=== PATIENT | female | born 1995 | race Two or more races ===

== ENCOUNTER 2016-09-28 14:57 | Emergency (ER) | payer OTHER ==
[2016-09-28 15:05] VITALS: BP 117/76; PULSE 92; TEMP 98; BMI 32.9
--- NOTE | 2016-09-28 15:18 | PDOC ---
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 Pt states she is 10 weeks Pt has no vaginal bleeding or discharge. no urinary complaints. Pt is . 09/28/16 15:55 Past History - Past Medical History Allergies/Adverse Reactions: Allergies Allergy/AdvReac Type Severity Reaction Status Date / Time No Known Allergies Allergy Verified 09/28/16 15:01 Home Medications: Ambulatory Orders Pyridoxine HCl 25 mg PO QID PRN #28 tablet MDD 200mg 09/28/16 Other medical history: Denies - Immunization History Immunization Up to Date: Yes - Psycho/Social/Smoking Cessation Hx Suicidal Ideation: No Smoking History: Never smoked Information on smoking cessation initiated: No Hx Alcohol Use: No Drug/Substance Use Hx: No Substance Use Type: None *Physical Exam - Vital Signs Last Vital Signs Temp Pulse Resp BP Pulse Ox 98.0 F 92 H 17 117/76 100 09/28/16 15:01 09/28/16 15:01 09/28/16 15:01 09/28/16 15:01 09/28/16 15:01 - Physical Exam General Appearance: Yes: Nourished, Appropriately Dressed HEENT: positive: EOMI, LEW, Normal ENT Inspection, TMs Normal, Pharynx Normal Neck: positive: Supple. negative: Tender Respiratory/Chest: positive: Lungs Clear, Normal Breath Sounds Cardiovascular: positive: Regular Rhythm, Regular Rate Gastrointestinal/Abdominal: positive: Normal Bowel Sounds, Soft. 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 tolerated crackers and apple juice without vomiting. will dc home stable for dc. *DC/Admit/Observation/Transfer Diagnosis at time of Disposition: Hyperemesis affecting , antepartum - Discharge Dispostion Disposition: HOME Condition at time of disposition: Good - Prescriptions Prescriptions: Pyridoxine HCl 25 mg PO QID PRN #28 tablet MDD 200mg PRN Reason: Nausea And/Or Vomiting - Patient Instructions Printed Discharge Instructions: DI for Hyperemesis Gravidarum Additional Instructions: norm twyla, gatorade, ice pops dry saltine crackers , dry cereal, bland diet take the prescribed vitamin B6 for nausea as directed follow with your Ob call tomorrow to make follow up appointment Gingerade Galletas saladas secas, cereal seco, dieta suave Ishan la vitamina B6 prescrita para las nuseas segn lo indicado Siga con ruiz Ob. llame maana para hacer la genna de seguimiento
[2016-09-28 15:55] LABS: URINE APPEARANCE CLOUDY; URINE BILIRUBIN NEGATIVE (NEGATIVE); URINE BLOOD NEGATIVE (NEGATIVE); URINE COLOR AMBER; URINE GLUCOSE (UA) NEGATIVE (NEGATIVE); URINE KETONE 1+ (NEGATIVE); URINE LEUK ESTERASE NEGATIVE (NEGATIVE); URINE NITRITE NEGATIVE (NEGATIVE)
[2016-09-28] MEDS ORDERED: ONDANSETRON 4 MG/2 ML VIAL IVPB ONE (15:59)
[2016-09-28] MEDS ORDERED: SODIUM CHLORIDE 0.9% 1000 ML INFUS.BAG IV ONE (15:59)
[2016-09-28] MEDS ORDERED: ONDANSETRON 4 MG/2 ML VIAL ONE (16:20)
[2016-09-28 16:32] LABS: URINE PROTEIN 1+ (NEGATIVE)
[2016-09-28 17:16] LABS: URINE MUCUS MANY; URINE RBC 8 /hpf (0-3); URINE WBC 2 /hpf (3-5)
[2016-09-28 17:53] LABS: ALBUMIN 3.8 g/dl (3.4-5.0); ALK PHOS 68 U/L (45-117); ANION GAP 9 (8-16); BILIRUBIN,TOTAL 0.3 mg/dL (0.2-1.0); CO2 26 mmol/L (21-32); CREATININE 0.6 mg/dL (0.55-1.02); GLUCOSE,RANDOM 75 mg/dL (74-106); SGPT/ALT 26 U/L (12-78); TOT PROT 7.7 g/dl (6.4-8.2)
[2016-09-28 17:54] LABS: SGOT/AST 15 U/L (15-37)
== END 2016-09-28 19:03 | disposition home or self-care (01) ==
LOC: JERFT 14:57
PROC: 3E033GC Introduction of Other Therapeutic Substance into Peripheral Vein, Percutaneous Approach (ICD-10-PCS; principal; 2016-09-28)
PROC: 3E033GC Introduction of Other Therapeutic Substance into Peripheral Vein, Percutaneous Approach (ICD-10-PCS; 2016-09-28)
DX: O26.891 Other specified pregnancy related conditions, first trimester (principal); O21.0 Mild hyperemesis gravidarum; Z3A.10 10 weeks gestation of pregnancy
CPT/HCPCS: 36415; 80053; 81003; 81015; 83735; 84703; 87086; 96374; 96375; 99281-25

== ENCOUNTER 2016-10-13 10:51 | Emergency (ER) | payer OTHER ==
[2016-10-13 11:01] VITALS: BMI 33.3
--- NOTE | 2016-10-13 13:31 | PDOC ---
History of Present Illness - General Chief Complaint: Pain Stated Complaint: ABD PAIN/VOMITING BLOOD,10WKS PREG Time Seen by Provider: 10/13/16 13:29 - History of Present Illness Initial Comments: 10/13/16 13:39 21 yo F with who presents with hematemesis. Pt. reports hematemesis beginning Wednesday associated with worsening chronic epigastric abdominal pain. Pain is crampy and fluctuates in severity. Unsure whether pain is related to PO intake, but reports decreased appetite. Pain stable throughout day and denies alleviators or inciting factors despite treatment with B6, norm twyla, and bland diet. Endorses dysuria. Denies fevers/chills, constipation, diahhrea, blood in stool, vaginal bleeding, pelvic pain, irregular vaginal discharge, chest pain, lightheadedness, dizziness, ALMEIDA, vision change, or LOC. Denies abdominal trauma. Recently evaluated in ED [facility] ( 09/28) for hyperemesis gravidarum. 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 Phone [phone] Past History - Past Medical History Allergies/Adverse Reactions: Allergies Allergy/AdvReac Type Severity Reaction Status Date / Time No Known Allergies Allergy Verified 10/13/16 11:01 Home Medications: Ambulatory Orders Vits #93/Iron Fum/FA [ Formula Tablet] 1 each PO DAILY Other medical history: denies - Immunization History Immunization Up to Date: Yes - Psycho/Social/Smoking Cessation Hx Suicidal Ideation: No Smoking History: Never smoked Information on smoking cessation initiated: No Hx Alcohol Use: No Drug/Substance Use Hx: No Substance Use Type: None Review of Systems - Review of Systems Comments:: 10/13/16 14:28 GENERAL/CONSTITUTIONAL: No fever or chills. No weakness. HEAD, EYES, EARS, NOSE AND THROAT: No change in vision. No ear pain or discharge. No sore throat.- CARDIOVASCULAR: No chest pain or shortness of breath RESPIRATORY: No cough, wheezing, or hemoptysis. GASTROINTESTINAL:+ Abdominal pain and nausea/vomiting. No diarrhea or constipation. GENITOURINARY: No dysuria, frequency, or change in urination. MUSCULOSKELETAL: No joint or muscle swelling or pain. No neck or back pain. SKIN: No rash NEUROLOGIC: + headache, vertigo, loss of consciousness, or change in strength/ sensation. ENDOCRINE: No increased thirst. No abnormal weight change HEMATOLOGIC/LYMPHATIC: No anemia, easy bleeding, or history of blood clots. ALLERGIC/IMMUNOLOGIC: No hives or skin allergy. *Physical Exam - Vital Signs Last Vital Signs Temp Pulse Resp BP Pulse Ox 98.6 F 89 19 113/41 100 10/13/16 10:59 10/13/16 10:59 10/13/16 10:59 10/13/16 10:59 10/13/16 10:59 - Physical Exam Comments: 10/13/16 14:29 GENERAL: Awake, alert, and fully oriented, in no acute distress HEAD: No signs of trauma, normocephalic, atraumatic EYES: PERRLA, EOMI, sclera anicteric, conjunctiva clear ENT: Auricles normal inspection, hearing grossly normal, nares patent, oropharynx clear without exudates. Moist mucosa NECK: Normal ROM, supple, no lymphadenopathy, JVD, or masses LUNGS: No distress, speaks full sentences, clear to auscultation bilaterally HEART: Regular rate and rhythm, normal S1 and S2, no murmurs, rubs or gallops, peripheral pulses normal and equal bilaterally. ABDOMEN: + LUQ/LUQ ttp with epigastric predominance. Neg Nicholas and Mcburney point tendereness. Soft, normoactive bowel sounds. No guarding,rigidity, no rebound. No masses. Absent CVA tenderness. EXTREMITIES: Normal inspection, Normal range of motion, no edema. No clubbing or cyanosis. SKIN: Warm, Dry, normal turgor, no rashes or lesions noted. ED Treatment Course - LABORATORY CBC & Chemistry Diagram: 10/13/16 18:20 10/13/16 14:05 Medical Decision Making - Medical Decision Making 10/13/16 14:31 21 yo F who presents with hematemesis and abdominal pain of 6 days duration. Denies associated symptoms. Denies fevers/chills, constipation, diarrhea, blood in stool, vaginal bleeding, pelvic pain, irregular vaginal discharge, chest pain, lightheadedness, dizziness, ALMEIDA, vision change, or LOC. Denies abdominal trauma. Physical exam reveals midepigastric ttp Recently evaluated in ED [facility] ( 09/28) for hyperemesis gravidarum. DDx: Esophagitis, hyperemesis gravidarum, Cholelithiasis, ED Course: 10/13/16 14:44 CBC, CMP, UA, 10/13/16 14:56 Famotidine 10/13/16 14:57 Pantaprazole 10/13/16 15:02 [place]- [id number] CBC, CMP: Unremarkable 10/13/16 16:25 U/S: Abdomen RUQ unremarkable U/S Trans Pre w 2 d 10/13/16 18:39 Repeat CBC normal: Stable D/C *DC/Admit/Observation/Transfer Diagnosis at time of Disposition: Esophagitis - Discharge Dispostion Disposition: HOME Condition at time of disposition: Improved Admit: No - Patient Instructions Printed Discharge Instructions: Managing Symptoms of Additional Instructions: Please return to ED if you experience vaginal bleeding, abdominal pain, shortness of breath or worsening of symptoms.
[2016-10-13] MEDS ORDERED: SODIUM CHLORIDE 1,000 ML IV STA (14:04)
[2016-10-13] MEDS ORDERED: PANTOPRAZOLE SODIUM 40 MG in SODIUM CHLORIDE 100 ML IVPB ONE (14:04)
[2016-10-13] MEDS ORDERED: ONDANSETRON 4 MG/2 ML VIAL IVPB ONE (14:14)
[2016-10-13] MEDS ORDERED: ONDANSETRON 4 MG/2 ML VIAL ONE (14:15)
[2016-10-13] MEDS ORDERED: PANTOPRAZOLE SODIUM 40 MG VIAL ONE (14:15)
[2016-10-13] MEDS ORDERED: FAMOTIDINE 20 MG/50 ML IVPB 50 ML IVPB ONE ×2 (14:37→15:41)
[2016-10-13 14:42] LABS: BASOPHIL 0.4 % (0-2.0); EOSINOPHIL 0.2 % (0-4.5); MCH 30.9 pg (25.7-33.7); MCHC 33.7 g/dl (32.0-36.0); MEAN CELL VOLUME 91.7 fl (80-96); MEAN PLT VOLUME 8.7 fl (7.5-11.1); NEUTROPHILS 72.9 % (42.8-82.8); PLATELET COUNT 202 K/MM3 (134-434); WHITE BLOOD COUNT 9.4 K/mm3 (4.0-10.0)
--- NOTE | 2016-10-13 15:02 | PDOC ---
Attending Attestation - Resident Resident Name: Blas Stevens - ED Attending Attestation I have performed the following: I have examined & evaluated the patient, The case was reviewed & discussed with the resident, I agree w/resident's findings & plan, Exceptions are as noted - HPI HPI: 10/13/16 14:57 Healthy 21-year-old female with no significant GI history, first trimester presents with intractable nausea/vomiting for 6 days now with dark fluid and occasionally red blood. Persistent epigastric burning but no melena or bright red blood per rectum. No history of GI bleeds. No history of tobacco use/alcohol use/excessive NSAID use. Never had or needed an endoscopy. no vaginal bleeding/cramping. - Physicial Exam PE: 10/13/16 15:00 Vital signs normal. No jaundice or pallor Epigastric discomfort without guarding or rebound, otherwise soft and nondistended without guarding/rebound. no edema - Medical Decision Making 10/13/16 15:01 Patient seen and evaluated with the resident. I agree with the overall evaluation, assessment, and management with the following summary of visit: 21-year-old female with intractable nausea/vomiting in first trimester, question some blood content. 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 We'll check CBC 2 Confirm IUP, rule out gallbladder disease Antacid, antiemetic IV fluid hydration Reassess. Given the need to rule out GI bleed and transferred stable hemoglobin , will place patient on observation for the extent of her workup. 10/13/16 16:09 Hemoglobin 14.1, slightly above her baseline from 12/24. Rh+, hCG 67,000. Bedside ultrasound shows IUP and normal gallbladder. Currently at ultrasound, we'll repeat CBC at 6 PM and dispo accordingly. Patient was signed out to the oncoming ED physician to follow-up the results, reassess the patient, and dispo accordingly.
[2016-10-13 15:16] LABS: ALBUMIN 3.8 g/dl (3.4-5.0); ALK PHOS 59 U/L (45-117); ANION GAP 8 (8-16); BILIRUBIN,TOTAL 0.4 mg/dL (0.2-1.0); CALCIUM 9.3 mg/dL (8.5-10.1); CO2 28 mmol/L (21-32); CREATININE 0.5 mg/dL (0.55-1.02); GLUCOSE,RANDOM 68 mg/dL (74-106); SGOT/AST 12 U/L (15-37); SGPT/ALT 28 U/L (12-78); TOT PROT 7.5 g/dl (6.4-8.2)
[2016-10-13 18:28] LABS: BASOPHIL 0.4 % (0-2.0); EOSINOPHIL 0.5 % (0-4.5); MCH 31.1 pg (25.7-33.7); MCHC 33.9 g/dl (32.0-36.0); MEAN CELL VOLUME 91.6 fl (80-96); MEAN PLT VOLUME 8.4 fl (7.5-11.1); NEUTROPHILS 70.2 % (42.8-82.8); PLATELET COUNT 184 K/MM3 (134-434); WHITE BLOOD COUNT 8.8 K/mm3 (4.0-10.0)
[2016-10-13 18:39] VITALS: BP 109/56; PULSE 69; TEMP 98
== END 2016-10-13 18:50 | disposition home or self-care (01) ==
LOC: JER 10:51
PROC: 3E033GC Introduction of Other Therapeutic Substance into Peripheral Vein, Percutaneous Approach (ICD-10-PCS; principal; 2016-10-13)
PROC: 3E0337Z Introduction of Electrolytic and Water Balance Substance into Peripheral Vein, Percutaneous Approach (ICD-10-PCS; 2016-10-13)
DX: K20.9 Esophagitis, unspecified (principal)
CPT/HCPCS: 36415; 76705-TC; 76801-TC; 80053; 83690; 84702; 85025; 86850; 86900; 86901; 99284-25

== ENCOUNTER 2017-04-29 14:05 | Inpatient (IN) | payer OTHER ==
[2017-04-29] MEDS ORDERED: DINOPROSTONE 10 MG VAGINAL SUPPOSITORY VG ONE (15:20)
[2017-04-29] MEDS ORDERED: SODIUM PHOSPHATE/NA BIPHOS 133 ML ENEMA PR ONE (15:38)
[2017-04-29] MEDS ORDERED: DEXTROSE 5%-LACTATED RINGERS 1,000 ML IV SCH (15:45)
--- NOTE | 2017-04-29 15:47 | HP ---
Past Medical History - Primary Care Physician PCP:: July Duckworth - Admission Chief Complaint: 22 yrs 38.5 weeks sent from [facility] office for delivery due to Oligohydramnios. 04/29/17 sono report :38.5 wks Bpp6/8 , ALEIDA 4.3, EFw 6'7 ' (26%tile) . pt c/o decrease FM in [facility] office History of Present Illness: PNC at 2, [facility] wt gain 51 LBS panel :09/17/16 A Pos, Rpr nr, Rubella immune, Hbsag neg, Hiv neg, , gc /ct neg, CF neg, 01/21/17 quantiferon neg, , 1Hr Gtt 94, , Rpr nr, 04/10/17 GBs neg, gc/ct neg , plt 208, h/h12.2/36.4, Hiv neg 04/22/17 Hellp work up done neg, due to Protenuria 2+ , Plt 194/ 24 Hrs urine protein 792 gm ,Cr Clearance 66. pt is monitored closely by [facility] for growth, later on for last 3 weeks for Aleida NT screen neg, AFP, neg, Materna T-21 Neg History Source: Patient, Medical Record Limitations to Obtaining History: No Limitations - Past Medical History ADMITTING REPRESENTATIVE: No: Migraine, Seizure Cardiovascular: No: AFIB, HTN Pulmonary: No: Asthma Gastrointestinal: Yes: Gastritis ...: 2 ...Spon : 1 ...LMP: 07/11/16 ... Weeks Gestation by Dates: 41.1 ...EDC by Dates: 04/22/17 ...EDC by Sono: 05/08/17 (38.5 weeks ) Heme/Onc: Yes: Anemia Infectious Disease: No: AIDS, HIV, STD's Psych: No: Addictions, Anxiety, Bipolar, Depression, Panic, Psychosis Endocrine: No: Diabetes Mellitus, Hypothyroidism - Past Surgical History Past Surgical History: Yes: None Hx Myomectomy: No Hx Transabdominal Cerclage: No - Smoking History Smoking history: Never smoked - Alcohol/Substance Use Hx Alcohol Use: No History of Substance Use: reports: None Home Medications - Allergies Allergies/Adverse Reactions: Allergies Allergy/AdvReac Type Severity Reaction Status Date / Time No Known Allergies Allergy Verified 04/24/17 08:48 - Home Medications Home Medications: Ambulatory Orders Vit 93/Iron Fum/Folic [ Formula Tablet] 1 each PO DAILY Physical Exam - Maternity Constitutional: Yes: Well Nourished, Obese Eyes: Yes: WNL HENT: Yes: WNL, Normocephalic Neck: Yes: WNL, Trachea Midline Cardiovascular: Yes: WNL Lungs: Clear to auscultation Breast(s): Yes: WNL - Abdominal Exam/OB Fundal Height: 38 Number of Fetuses: Single Presentation: Vertex Contractions: No Monitor Mode: External Heart Rate (range): 130-140 Heart Rate Location: Midline Category: I Accelerations: Uniform Decelerations: None - Vaginal Exam/OB Vaginal Bleediing: No Speculum Exam: No Dilatation (cm): FT Effacement (%): 40 Amniotic Membrane Status: Intact Presentation: Vertex/Position Station: -3 - Physical Exam Musculoskeletal: Yes: WNL Extremities: Yes: WNL. No: Calf Tenderness Edema: Yes Integumentary: Yes: WNL Deep Tendon Reflex Grade: Normal +2 ...Motor Strength: WNL Psychiatric: Yes: WNL Problem List - Problems (1) with 38 completed weeks gestation Code(s): Z3A.38 - 38 WEEKS GESTATION OF (2) Oligohydramnios in [place] in third trimester Code(s): O41.03X0 - OLIGOHYDRAMNIOS, THIRD TRIMESTER, NOT APPLICABLE OR UNSP (3) Elective induction of labor planned Code(s): VFQ2935 - Assessment/Plan 22 yrs , 38.5/7 weeks , Oligohydramnios , gbs neg, for Induction of labor Plan cervidil insertion ( done at 3.20 PM ) trial of vaginal delivery
[2017-04-29 16:38] LABS: BASO % 0.2 % (0-2.0); EOS % 0.2 % (0-4.5); LYMPH % 18.9 % (8-40); MCH 30.3 pg (25.7-33.7); MCHC 33.2 g/dl (32.0-36.0); MEAN PLT VOLUME 9.8 fl (7.5-11.1); MONO % 9.1 % (3.8-10.2); NEUT % 71.6 % (42.8-82.8); PLATELET COUNT 219 K/MM3 (134-434); RBC 3.95 M/mm3 (3.60-5.2); RDW 14.8 % (11.6-15.6); WHITE BLOOD COUNT 9.7 K/mm3 (4.0-10.0)
[2017-04-29 16:50] LABS: INR 0.89 (0.82-1.09); PROTHROMBIN TIME (PATIENT) 10.1 SEC (9.98-11.88)
[2017-04-29 16:51] VITALS: BMI 38.4
[2017-04-29 16:52] LABS: ACTIVATED PTT 25.2 SECONDS (26.9-34.4)
[2017-04-29 16:56] LABS: RETICULOCYTES 1.48 % (0.5-1.5)
--- NOTE | 2017-04-29 17:27 | PN ---
Progress Note (short form) - Note Progress Note: FHR 130 bpm base line . Spontaneous onset of Late decel at 16.30 to 16.34 , zenith at 90 bpm . Except one decel FHR tracing is cat-1 plan continue to observe . If decelration recurs , I will stop induction od labor, deliver her by Primary c/section pt had another spontaneous late decl for 4 min at 8.10 PM zenith 60 bpm cervidil removed . IMP : Non Reassuring FHR failed induction of labor Plan delivery by primary c/section Problem List - Problems (1) with 38 completed weeks gestation Code(s): Z3A.38 - 38 WEEKS GESTATION OF (2) Oligohydramnios in [place] in third trimester Code(s): O41.03X0 - OLIGOHYDRAMNIOS, THIRD TRIMESTER, NOT APPLICABLE OR UNSP (3) Elective induction of labor planned Code(s): VVM0673 - (4) Non-reassuring electronic monitoring tracing Code(s): O76 - ABNLT IN HEART RATE AND RHYTHM COMP LABOR AND DELIVERY (5) Failed induction Code(s): O61.9 - FAILED INDUCTION OF LABOR, UNSPECIFIED
[2017-04-29 17:41] LABS: ANION GAP 8 (8-16); BLOOD UREA NITROGEN 15 mg/dL (7-18); CALCIUM 8.6 mg/dL (8.5-10.1); CHLORIDE 104 mmol/L (98-107); CO2 26 mmol/L (21-32); CREATININE 0.8 mg/dL (0.55-1.02); GLUCOSE,RANDOM 90 mg/dL (74-106); POTASSIUM 4.6 mmol/L (3.5-5.1); SODIUM 138 mmol/L (136-145)
[2017-04-29 17:44] LABS: URINE APPEARANCE CLEAR; URINE BILIRUBIN NEGATIVE (NEGATIVE); URINE BLOOD NEGATIVE (NEGATIVE); URINE COLOR LTYELLOW; URINE GLUCOSE (UA) NEGATIVE (NEGATIVE); URINE KETONE NEGATIVE (NEGATIVE); URINE LEUK ESTERASE NEGATIVE (NEGATIVE); URINE NITRITE NEGATIVE (NEGATIVE); URINE UROBILINOGEN NEGATIVE mg/dL (0.2-1.0)
[2017-04-29 17:44] LABS: URIC ACID 5.1 mg/dL (2.6-7.2)
[2017-04-29 17:45] LABS: URINE PROTEIN 2+ (NEGATIVE)
[2017-04-29 19:26] LABS: EPI CELLS FEW /HPF (FEW); URINE MUCUS RARE
[2017-04-29] MEDS ORDERED: ELECTROLYTE-148 SOLN 500 ML IV ONE (20:51)
[2017-04-29] MEDS ORDERED: CITRIC ACID/SODIUM CITRATE 30 ML UNIT-DOSE CUP PO ONE (21:30)
[2017-04-29] MEDS ORDERED: ePHEDrine SULFATE 50 MG/1 ML AMPULE ONE (22:47)
[2017-04-29] MEDS ORDERED: morphine SULFATE/Preservative Free 0.5 MG/ML (1cc Syringe) ONE (22:47)
[2017-04-29] MEDS ORDERED: ceFAZolin SODIUM 1 GM VIAL ONE (23:06)
[2017-04-29] MEDS ORDERED: OXYTOCIN 10 UNITS/ML VIAL ONE (23:08)
[2017-04-29 23:53] LABS: ARTERIAL BLOOD GAS BASE EXCESS -4.9 meq/l (-2-2)
[2017-04-29 23:57] LABS: ARTERIAL BLD GAS O2 SATURATION 8.4 % (90-98.9); ARTERIAL BLOOD GAS PCO2 65.5 mmHg (35-45); ARTERIAL BLOOD GAS PO2 10.8 mmHg (80-100); ARTERIAL BLOOD GAS pH 7.2 (7.35-7.45)
[2017-04-29 23:58] LABS: VENOUS PC02 55.6 mmHg (38-52); VENOUS PH 7.27 (7.32-7.42)
[2017-04-29 23:59] LABS: VENOUS PO2 19.1 mmHg (28-48)
[2017-04-30] MEDS: OXYTOCIN 20 UNITS in 0.9% NS 20 UNIT/1,000 ML INFUS.BAG IV SCH (00:15)
[2017-04-30] MEDS ORDERED: IBUPROFEN 800 MG/8 ML IJ IVPB PRN (00:19)
[2017-04-30] MEDS ORDERED: METHYLERGONOVINE MALEATE 0.2 MG/1 ML AMP IM PRN (00:19)
[2017-04-30] MEDS ORDERED: OXYTOCIN 20 UNITS in 0.9% NS 20 UNIT/1,000 ML INFUS.BAG IV ONE (00:36)
--- NOTE | 2017-04-30 00:44 | OP ---
Operative Note - Note: Operative Date: 04/29/17 Pre-Operative Diagnosis: 38.5 weeks, Oligohydramnios, Non reassuring FHR, failed induction , obesity Operation: Primary Low Flap Transverse C/section Findings: 11.16 Pm , baby Boy, 9/9, wt , vx Lot position scanty amniotic fluid Both Tubes & ovaries normal dr Jeannie Penaloza present in OR Surgeon: July Duckworth Signalling And Communications Engineer: Avi Pisano Anesthesiologist/COMPUTER HELP DESK REPRESENTATIVE: Nikki Prabhakar Anesthesia: Spinal Specimens Removed: cord blood gas. cord blood. placenta Estimated Blood Loss (mls): 700 Drains, Volume Out (mls): 200 Fluid Volume Replaced (mls): 2,000 (iv ancef 2 gm prior to incision ) Operative Report Dictated: Yes
--- NOTE | 2017-04-30 01:03 | PN ---
Delivery - Delivery Section: Primary, Low Flap Transverse (38.5 weeks, severe oligohydramnios, non reassuring FHR , Obesity) Type of Anesthesia: Spinal EBL (cc): 700 (joseph out put 200 ml sarah color ) Delivery, Single - Stages of Labor Date of Delivery: 04/30/17 Time of Delivery: 23:16 Date Placenta Delivered: 04/30/17 Time Placenta Delivered: 23:18 Placenta: Yes: Spontaneous, Uterine Exploration - Condition of Infant Zumba Instructor/Mangle Tender Cloth Present: Yes Name: Ca Dennis Gender: Male Weight: 6 lb 5 oz Position: Left, OT Total Hours ROM (Hrs/Mins): 2 min - 1 Minute Total Score: 9 5 Minutes Total Score: 9 - Carrier Feeding Plan Initial Plan: Exclusive throughout hospitalization Remarks - Remarks Remarks: 22 yrs , 38.5 weeks by dates, 41 weeks by Sono , admitted for severe Oligo hydaramnios ( [place]ita 4.3) pnc at , [facility] gbs neg cervidil inserted Non reassuring fhr diagnosed, spontaneous late decelrations Intraop course uneventful Baby was transferred to NICU
--- NOTE | 2017-04-30 01:29 | OP ---
DATE OF OPERATION: 04/29/2017 PREOPERATIVE DIAGNOSIS: A 38.5 week gestation, oligohydramnios, nonreassuring heart, failed induction, obesity. OPERATION: Primary low transverse section. SURGEON: July Duckworth MD WAREHOUSE REPRESENTATIVE: EZE Dueñas ANESTHESIOLOGIST: Nikki Prabhakar DO ANESTHESIA: Spinal. FINDINGS: This is a 22-year-old, 2, para 0-0-1-0 at 38.5 week by sonogram, 41 weeks by dates. She had an ALEIDA of 4.3 on a biophysical profile today, so she was sent for management of delivery. Cervidil induction was done and the patient had 2 times spontaneous deceleration; one time was 4 minutes and the other time was 2-1/2 minutes. It was decided to stop induction and deliver the patient by section as her cervix was just fingertip and station was -3. PROCEDURE: Abdomen was shaved. Fair catheter was placed. Patient was taken to the operating room table. Spinal anesthesia was given. Abdomen was painted and draped in the usual manner. The skin incision was made, Pfannenstiel type, of the skin incision made. The skin, subcutaneous tissue and anterior rectus sheath were incised transversely. Bleeding points were clamped and cauterized. Rectus muscle was from the rectus sheath. Parietal peritoneum was opened vertically. The lower border of the peritoneum was incised transversely. The lower uterine segment was isolated and the lower uterine segment was incised transversely and amniotic fluid was very minimal. The baby was gently delivered from an LOP position at 11:16 p.m. oral and nasal suctioning was done. Cord was clamped and cut. Cord segment was sent for cord blood gas. The cord blood was collected. Placenta was removed completely with membranes and sent for pathology examination. The uterine cavity was cleaned. Closure of the uterine incision was done in 2 layers. First layer was a continuous locking with a Biosyn 0 suture. Second layer was closed with Biosyn 0 continuous intermittently locking suture and the vertical and mattress sutures. Hemostasis was checked. The bladder flap was closed with that Biosyn suture. Both tubes and ovaries were normal. Irrigation was done. Sponge and instrument counts were correct and then closure of the abdomen was done. Parietal peritoneum was closed with 0 Vicryl suture. Hemostasis was checked. Muscles were approximated together with interrupted Vicryl suture. Hemostasis was checked underneath the rectus sheath flap and then the rectus sheath was closed with 0 Vicryl continuous sutures. Hemostasis was checked in the subcutaneous tissue. Interrupted sutures were taken in the subcutaneous tissue with Biosyn 0 suture. Skin was approximated with obie. Pressure dressing was given. Blood clots were removed from the vagina. Estimated blood loss was 700 mL. Intraoperative urine output was 200 mL. Urine was sarah colored. She received 2 g of IV Ancef prior to the incision. She was transferred to the recovery room in stable condition. The baby was transferred to the NICU for observation. Verónica [id number]
[2017-04-30] MEDS: ONDANSETRON 4 MG/2 ML VIAL IVPUSH PRN ×3 (03:28→08:29)
[2017-04-30] MEDS: CEFAZOLIN 1 GM/D5W 1 GM/50 ML BAG IVPB SCH ×3 (06:39→17:00)
--- NOTE | 2017-04-30 07:51 | PN ---
Post Progress Note - Subjective Subjective: c/o pain at incision site scale 3-4/10 Post Day: 1 Type of Delivery: Primary C/S Vital Signs: Vital Signs Temperature 98.4 F 04/30/17 06:00 Pulse Rate 81 04/30/17 06:00 Respiratory Rate 18 04/30/17 06:00 Blood Pressure 123/65 04/30/17 06:00 O2 Sat by Pulse Oximetry (%) 100 04/30/17 00:50 Breast Exam: Yes: Soft, Other (BF). No: Engorged Uterus: Yes: Fundus Firm, Fundus below umbilicus, Non-tender Incision: Yes: Dressing dry and intact. No: Redness, Oozing Abdomen/GI: Yes: Abdomen soft (BS active ), Abdominal Distention (obese abdome ) , Tolerating PO (water). No: Tender, Passing flatus Lochia: Yes: Rubra Lochia, amount: Moderate Extremities: Yes: Calves non-tender, Edema (scd in situ) Perineum: Yes: Intact Activity: Other (not oob yet ) - Labs Labs: CBC WBC 9.7 K/mm3 (4.0-10.0) 04/29/17 15:30 RBC 3.95 M/mm3 (3.60-5.2) 04/29/17 15:30 Hgb 12.0 GM/dL (10.7-15.3) 04/29/17 15:30 Hct 36.0 % (32.4-45.2) 04/29/17 15:30 MCV 91.0 fl (80-96) 04/29/17 15:30 MCH 30.3 pg (25.7-33.7) 04/29/17 15:30 MCHC 33.2 g/dl (32.0-36.0) 04/29/17 15:30 RDW 14.8 % (11.6-15.6) D 04/29/17 15:30 Plt Count 212 K/MM3 (134-434) 04/29/17 15:30 MPV 9.8 fl (7.5-11.1) D 04/29/17 15:30 Neutrophils % 71.6 % (42.8-82.8) 04/29/17 15:30 Lymphocytes % 18.9 % (8-40) 04/29/17 15:30 Monocytes % 9.1 % (3.8-10.2) 04/29/17 15:30 Eosinophils % 0.2 % (0-4.5) 04/29/17 15:30 Basophils % 0.2 % (0-2.0) 04/29/17 15:30 Retic Count 1.48 % (0.5-1.5) 04/29/17 15:30 Other Findings, Remarks: i/o 1999/1599 urine in Joseph bag draining sarah color. RS cta Problem List - Problems (1) with 38 completed weeks gestation Code(s): Z3A.38 - 38 WEEKS GESTATION OF (2) Oligohydramnios in [place] in third trimester Code(s): O41.03X0 - OLIGOHYDRAMNIOS, THIRD TRIMESTER, NOT APPLICABLE OR UNSP (3) Elective induction of labor planned Code(s): [id number] - (4) Non-reassuring electronic monitoring tracing Code(s): O76 - ABNLT IN HEART RATE AND RHYTHM COMP LABOR AND DELIVERY (5) Failed induction Code(s): O61.9 - FAILED INDUCTION OF LABOR, UNSPECIFIED (6) delivery delivered Code(s): O82 - ENCOUNTER FOR DELIVERY WITHOUT INDICATION (7) Obesity (BMI 35.0-39.9 without comorbidity) Code(s): E66.9 - OBESITY, UNSPECIFIED Assessment/Plan s/p c/section day #1 encourage po fluids encourage deep breathing, use incentive spirometer ambulatio after joseph is discontinued repeat cbc today
[2017-04-30] MEDS ORDERED: ONDANSETRON 4 MG TABLET PO PRN (08:48)
[2017-04-30] MEDS ORDERED: oxyCODONE HCL 5 MG TABLET PO PRN ×2 (12:00)
[2017-04-30] MEDS: ENOXAPARIN NA (PORCINE) 40 MG/0.4 ML DISP.SYRIN SQ SCH (12:49)
[2017-04-30] MEDS: ACETAMINOPHEN 325 MG TABLET (FP) PO PRN (14:58)
[2017-04-30] MEDS: SIMETHICONE 80 MG TAB.CHEW (FP) PO PRN (14:58)
[2017-04-30] MEDS: IBUPROFEN 600 MG TABLET (FP) PO PRN (14:59)
--- NOTE | 2017-04-30 16:59 | PN ---
Progress Note (short form) - Note Progress Note: POD #1 - s/p under spinal anesthesia with duramorph. Pt. doing well, resting comfortably in bed. No complaints. Good pain control. No apparent anesthetic complications noted. Continue current care.
[2017-04-30] MEDS: SENNOSIDES/DOCUSATE COMBO (SENNA PLUS) TABLET (UD) PO PRN (22:12)
[2017-05-01] MEDS ORDERED: BISACODYL 10 MG SUPP.RECT RC PRN (00:19)
[2017-05-01] MEDS ORDERED: CEFAZOLIN 1 GM/D5W 1 GM/50 ML BAG IVPB ONE (02:00)
[2017-05-01] MEDS: SIMETHICONE 80 MG TAB.CHEW (FP) PO PRN (02:23)
[2017-05-01] MEDS: ACETAMINOPHEN 325 MG TABLET (FP) PO PRN ×2 (02:23→17:10)
[2017-05-01] MEDS: IBUPROFEN 600 MG TABLET (FP) PO PRN ×2 (02:23→17:11)
[2017-05-01 08:33] LABS: BASO % 0.2 % (0-2.0); EOS % 0.6 % (0-4.5); HEMATOCRIT 33.7 % (32.4-45.2); HEMOGLOBIN 11.3 GM/dL (10.7-15.3); LYMPH % 19.1 % (8-40); MCH 30.6 pg (25.7-33.7); MCHC 33.5 g/dl (32.0-36.0); MEAN CELL VOLUME 91.4 fl (80-96); MEAN PLT VOLUME 8.8 fl (7.5-11.1); NEUT % 73.1 % (42.8-82.8); PLATELET COUNT 186 K/MM3 (134-434); RBC 3.69 M/mm3 (3.60-5.2); RDW 15.6 % (11.6-15.6); WHITE BLOOD COUNT 10.4 K/mm3 (4.0-10.0)
--- NOTE | 2017-05-01 10:17 | PN ---
Post Progress Note - Subjective Subjective: Pt reports incisional pain. Ambulating, tolerating diet, +voiding and flatus. No BM yet. Post Day: 2 Type of Delivery: Primary C/S Vital Signs: Vital Signs Temperature 98.5 F 05/01/17 09:01 Pulse Rate 80 05/01/17 09:01 Respiratory Rate 20 05/01/17 09:01 Blood Pressure 127/78 05/01/17 09:01 O2 Sat by Pulse Oximetry (%) 100 04/30/17 00:50 Breast Exam: Yes: Soft Uterus: Yes: Fundus Firm Incision: Yes: Spout Spring intact Abdomen/GI: Yes: Abdomen soft Lochia: Yes: Rubra Lochia, amount: Small Extremities: Yes: Calves non-tender Perineum: Yes: Intact Activity: Ambulating - Labs Labs: CBC WBC 10.4 K/mm3 (4.0-10.0) H 05/01/17 07:45 RBC 3.69 M/mm3 (3.60-5.2) 05/01/17 07:45 Hgb 11.3 GM/dL (10.7-15.3) 05/01/17 07:45 Hct 33.7 % (32.4-45.2) 05/01/17 07:45 MCV 91.4 fl (80-96) 05/01/17 07:45 MCH 30.6 pg (25.7-33.7) 05/01/17 07:45 MCHC 33.5 g/dl (32.0-36.0) 05/01/17 07:45 RDW 15.6 % (11.6-15.6) 05/01/17 07:45 Plt Count 186 K/MM3 (134-434) 05/01/17 07:45 MPV 8.8 fl (7.5-11.1) D 05/01/17 07:45 Neutrophils % 73.1 % (42.8-82.8) 05/01/17 07:45 Lymphocytes % 19.1 % (8-40) 05/01/17 07:45 Monocytes % 7.0 % (3.8-10.2) 05/01/17 07:45 Eosinophils % 0.6 % (0-4.5) D 05/01/17 07:45 Basophils % 0.2 % (0-2.0) 05/01/17 07:45 Retic Count 1.48 % (0.5-1.5) 04/29/17 15:30 Haptoglobin 159 mg/dL (34-200) 04/29/17 15:30 Problem List - Problems (1) delivery delivered Assessment/Plan: Pt POD#2 s/p primary c/s for failed induction, nrfht continue postop care incentive spirometry ambulation encouraged pain medication needed Dr. Cook Code(s): O82 - ENCOUNTER FOR DELIVERY WITHOUT INDICATION
[2017-05-01] MEDS: ENOXAPARIN NA (PORCINE) 40 MG/0.4 ML DISP.SYRIN SQ SCH (10:27)
[2017-05-01] MEDS: PRENATAL VITAMINS W/ FOLIC ACID TABLET (FP) PO SCH (10:27)
[2017-05-01] MEDS: FERROUS SO4 325 MG TABLET (FP) PO SCH ×2 (10:27→21:08)
[2017-05-01] MEDS ORDERED: DIPHTH,PERTUSS(ACELL),TET 0.5 ML DISP.SYRIN IM ONE (14:15)
[2017-05-01] MEDS: OXYTOCIN 20 UNITS in 0.9% NS 20 UNIT/1,000 ML INFUS.BAG IV SCH (17:16)
[2017-05-01] MEDS: SENNOSIDES/DOCUSATE COMBO (SENNA PLUS) TABLET (UD) PO PRN (20:48)
--- NOTE | 2017-05-02 07:14 | PN ---
Post Progress Note - Subjective Subjective: 22 yo Para 1, status post primary , seen and evaluated. Doing well, except for mild incision pain. Post Day: 2 Type of Delivery: Primary C/S Vital Signs: Vital Signs Temperature 98.1 F 05/01/17 20:46 Pulse Rate 88 05/01/17 20:46 Respiratory Rate 20 05/01/17 20:46 Blood Pressure 120/82 05/01/17 20:46 O2 Sat by Pulse Oximetry (%) 100 04/30/17 00:50 Breast Exam: Yes: Soft Uterus: Yes: Fundus Firm Incision: Yes: Dressing dry and intact Abdomen/GI: Yes: Abdomen soft, Tolerating PO Lochia: Yes: Rubra Lochia, amount: Small Extremities: Yes: Calves non-tender Perineum: Yes: Intact Activity: Ambulating - Labs Labs: CBC WBC 10.4 K/mm3 (4.0-10.0) H 05/01/17 07:45 RBC 3.69 M/mm3 (3.60-5.2) 05/01/17 07:45 Hgb 11.3 GM/dL (10.7-15.3) 05/01/17 07:45 Hct 33.7 % (32.4-45.2) 05/01/17 07:45 MCV 91.4 fl (80-96) 05/01/17 07:45 MCH 30.6 pg (25.7-33.7) 05/01/17 07:45 MCHC 33.5 g/dl (32.0-36.0) 05/01/17 07:45 RDW 15.6 % (11.6-15.6) 05/01/17 07:45 Plt Count 186 K/MM3 (134-434) 05/01/17 07:45 MPV 8.8 fl (7.5-11.1) D 05/01/17 07:45 Neutrophils % 73.1 % (42.8-82.8) 05/01/17 07:45 Lymphocytes % 19.1 % (8-40) 05/01/17 07:45 Monocytes % 7.0 % (3.8-10.2) 05/01/17 07:45 Eosinophils % 0.6 % (0-4.5) D 05/01/17 07:45 Basophils % 0.2 % (0-2.0) 05/01/17 07:45 Retic Count 1.48 % (0.5-1.5) 04/29/17 15:30 Haptoglobin 159 mg/dL (34-200) 04/29/17 15:30 Assessment/Plan Status post Stable Ambulation Analgesia as needed Continue routine post op care
[2017-05-02] MEDS: FERROUS SO4 325 MG TABLET (FP) PO SCH ×2 (09:31→21:08)
[2017-05-02] MEDS: ENOXAPARIN NA (PORCINE) 40 MG/0.4 ML DISP.SYRIN SQ SCH (09:31)
[2017-05-02] MEDS: PRENATAL VITAMINS W/ FOLIC ACID TABLET (FP) PO SCH (09:31)
[2017-05-02] MEDS: SIMETHICONE 80 MG TAB.CHEW (FP) PO PRN (19:10)
[2017-05-02] MEDS: SENNOSIDES/DOCUSATE COMBO (SENNA PLUS) TABLET (UD) PO PRN (19:10)
[2017-05-02] MEDS: ACETAMINOPHEN 325 MG TABLET (FP) PO PRN (19:11)
[2017-05-02] MEDS: IBUPROFEN 600 MG TABLET (FP) PO PRN (19:11)
[2017-05-03 08:04] VITALS: BP 134/78; PULSE 70; TEMP 98.2
[2017-05-03 08:49] LABS: BASO % 0.5 % (0-2.0); EOS % 2.1 % (0-4.5); HEMOGLOBIN 11.9 GM/dL (10.7-15.3); MCH 30.4 pg (25.7-33.7); MCHC 32.9 g/dl (32.0-36.0); MEAN CELL VOLUME 92.3 fl (80-96); MEAN PLT VOLUME 9.7 fl (7.5-11.1); MONO % 7.3 % (3.8-10.2); NEUT % 70.1 % (42.8-82.8); PLATELET COUNT 222 K/MM3 (134-434); RBC 3.91 M/mm3 (3.60-5.2); RDW 15.7 % (11.6-15.6); WHITE BLOOD COUNT 9.2 K/mm3 (4.0-10.0)
--- NOTE | 2017-05-03 09:12 | PN ---
Post Progress Note - Subjective Subjective: 22 yo Para 1 status post , seen and evaluated. Doing well. Post Day: 3 Type of Delivery: Primary C/S Vital Signs: Vital Signs Temperature 98.2 F 05/03/17 08:01 Pulse Rate 70 05/03/17 08:01 Respiratory Rate 20 05/03/17 08:01 Blood Pressure 134/78 05/03/17 08:01 O2 Sat by Pulse Oximetry (%) 100 04/30/17 00:50 Breast Exam: Yes: Soft Uterus: Yes: Fundus Firm Incision: Yes: Shefali intact Abdomen/GI: Yes: Abdomen soft, Tolerating PO Lochia: Yes: Rubra Lochia, amount: Small Extremities: Yes: Calves non-tender Perineum: Yes: Intact Activity: Ambulating - Labs Labs: CBC WBC 9.2 K/mm3 (4.0-10.0) 05/03/17 06:50 RBC 3.91 M/mm3 (3.60-5.2) 05/03/17 06:50 Hgb 11.9 GM/dL (10.7-15.3) 05/03/17 06:50 Hct 36.0 % (32.4-45.2) 05/03/17 06:50 MCV 92.3 fl (80-96) 05/03/17 06:50 MCH 30.4 pg (25.7-33.7) 05/03/17 06:50 MCHC 32.9 g/dl (32.0-36.0) 05/03/17 06:50 RDW 15.7 % (11.6-15.6) H 05/03/17 06:50 Plt Count 222 K/MM3 (134-434) 05/03/17 06:50 MPV 9.7 fl (7.5-11.1) D 05/03/17 06:50 Neutrophils % 70.1 % (42.8-82.8) 05/03/17 06:50 Lymphocytes % 20.0 % (8-40) 05/03/17 06:50 Monocytes % 7.3 % (3.8-10.2) 05/03/17 06:50 Eosinophils % 2.1 % (0-4.5) D 05/03/17 06:50 Basophils % 0.5 % (0-2.0) 05/03/17 06:50 Retic Count 1.48 % (0.5-1.5) 04/29/17 15:30 Haptoglobin 159 mg/dL (34-200) 04/29/17 15:30 Assessment/Plan Status post Stable Ambulation Analgesia as needed Continue routine post op care
[2017-05-03] MEDS: SIMETHICONE 80 MG TAB.CHEW (FP) PO PRN (09:19)
[2017-05-03] MEDS: ENOXAPARIN NA (PORCINE) 40 MG/0.4 ML DISP.SYRIN SQ SCH (09:19)
[2017-05-03] MEDS: ACETAMINOPHEN 325 MG TABLET (FP) PO PRN (09:19)
[2017-05-03] MEDS: PRENATAL VITAMINS W/ FOLIC ACID TABLET (FP) PO SCH (09:19)
[2017-05-03] MEDS: IBUPROFEN 600 MG TABLET (FP) PO PRN (09:19)
[2017-05-03] MEDS: FERROUS SO4 325 MG TABLET (FP) PO SCH (09:19)
--- NOTE | 2017-05-03 13:02 | DS ---
Physical Exam-STUDIO HAND Vital Signs: Vital Signs Temperature 98.2 F 05/03/17 08:01 Pulse Rate 70 05/03/17 08:01 Respiratory Rate 20 05/03/17 08:01 Blood Pressure 134/78 05/03/17 08:01 O2 Sat by Pulse Oximetry (%) 100 04/30/17 00:50 Constitutional: Yes: Well Nourished, Obese Eyes: Yes: WNL HENT: Yes: WNL, Pharyngeal Erythema Neck: Yes: WNL Cardiovascular: Yes: WNL, Regular Rate and Rhythm Respiratory: Yes: WNL Gastrointestinal: Yes: WNL, Normal Bowel Sounds, Other (bm done). No: Distention Renal/: Yes: WNL ....Post : Yes: Uterus firm, Uterus non-tender, Moderate lochia rubra Breast(s): Yes: WNL (bf , not engorged) Musculoskeletal: Yes: WNL Extremities: Yes: WNL. No: Calf Tenderness Edema: Yes Edema: LLE: 1+, RLE: 1+ Wound/Incision: Yes: Clean/Dry, Well Approximated, Steri Strips, Open to air, [place] Removed. 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 Present: Yes Name: Ca Dennis Gender: Male Weight: 6 lb 5 oz Position: Left, OT Total Hours ROM (Hrs/Mins): 2 min - 1 Minute Total Score: 9 5 Minutes Total Score: 8 - [place] Feeding Plan Initial Plan: Exclusive throughout hospitalization Remarks - Remarks Remarks: 22 yrs , 38.5 weeks by dates, 41 weeks by Sono , admitted for severe Oligo hydaramnios ( [place] 4.3) pnc at [address] [place] [address] gbs neg cervidil inserted Non reassuring fhr diagnosed, spontaneous late decelrations Intraop course uneventful Baby was transferred to NICU post op course uneventful infant doing well discharge today . pt discharged today Discharge Summary Reason For Visit: INDUCTION OF LABOR Current Active Problems 38 weeks gestation of (Acute) delivery delivered (Acute) Elective induction of labor planned (Acute) Failed induction (Acute) Non-reassuring electronic monitoring tracing (Acute) Obesity (BMI 35.0-39.9 without comorbidity) (Acute) Oligohydramnios in [place] in third trimester (Acute) with 38 completed weeks gestation (Acute) - Instructions Diet, Activity, Other Instructions: return to clinic in 1 week for incision check and 6 weeks for check. call [facility] for appointment. [phone] Referrals: July Duckworth MD [Staff Physician] - - Home Medications Comprehensive Discharge Medication List: Ambulatory Orders Vit 93/Iron Fum/Folic [ Formula Tablet] 1 each PO DAILY Acetaminophen [Tylenol .Regular Strength -] 500 mg PO Q4H PRN #30 tablet Ferrous Sulfate [Feosol] 325 mg PO BID ud 05/03/17 Ibuprofen [Motrin -] 600 mg PO Q4H PRN #30 tablet 05/03/17 Vitamins (Sjr) - 1 tab PO DAILY tablet 05/03/17 Sennosides/Docusate Sodium [Pericolace -] 2 tablet PO HS PRN #30 tablet
--- NOTE | 2017-05-07 11:16 | PATH ---
Surgical Pathology Report Patient Name: AVILA CHOWDARY Med. Rec. #: [id number] /Age/Gender: 1995 (Age: 22) / F Account: [id number] Location: [facility] OBS/WARNING COORDINATION METEOROLOGIST Taken: 04/29/2017 Received: 04/30/2017 Reported: 05/07/2017 Physicians: July Duckworth M.D. Specimen(s) Received PLACENTA Clinical History , 38.5 weeks, oligohydramnios, protein in urine, nonreassuring heart rate Final Diagnosis PLACENTA, DELIVERY: SMALL (349 GRAMS) THIRD TRIMESTER PLACENTA WITH 3 VESSEL UMBILICAL CORD AND UNREMARKABLE PLACENTAL MEMBRANES. Electronically Signed Óscar Jones M.D. Gross Description The specimen is received fresh labeled placenta and is a 349 gram, 13.5 x 12.5 x 3.0 cm. placenta with attached membranes and umbilical cord. The attached membranes are rodriguez, thick, cloudy and insert marginally. The umbilical cord measures 17 cm. in length and averages 1 cm. in diameter. The cord inserts eccentrically, 3 cm. to the nearest margin. No true knots or strictures are identified. Cut surface of the umbilical cord reveals 3 vessels. The surface is vargas-blue with minimal fibrin deposition and appropriate caliber vessels. The maternal surface is red-brown and intact. Sectioning reveals red-brown, spongy parenchyma. No lesions are identified. Testing Lead sections are submitted in three cassettes as follows: 1- membrane rolls and umbilical cord; 2-3- full thickness sections of placenta. 05/04/2017 [facility]05/04/2017
== END 2017-05-03 14:45 | disposition home or self-care (01) | DRG 540 ==
LOC: JLDR 14:05 → J3W 04-30 02:40
PROVIDERS: ADMIT Obstetrics & Gynecology; ATTEND Obstetrics & Gynecology
PROC: 10D00Z1 Extraction of Products of Conception, Low, Open Approach (ICD-10-PCS; principal; 2017-04-29)
DX: O76 Abnormality in fetal heart rate and rhythm complicating labor and delivery (principal); O41.03X0 Oligohydramnios, third trimester, not applicable or unspecified; O62.0 Primary inadequate contractions; O99.214 Obesity complicating childbirth; E66.9 Obesity, unspecified; Z68.38 Body mass index [BMI] 38.0-38.9, adult; Z3A.38 38 weeks gestation of pregnancy; Z37.0 Single live birth
CPT/HCPCS: 36415; 36600; 80048; 81003; 81015; 82803; 82977; 83010; 84450; 84460; 84550; 85025; 85032; 85044; 85610; 85730; 86593; 86850; 86900; 86901; 88307-TC; 90715; 94010

== ENCOUNTER 2018-01-18 17:04 | Emergency (ER) | payer OTHER ==
[2018-01-18] MEDS ORDERED: KETOROLAC TROMETHAMINE 30 MG/1 ML VIAL IM ONE (17:19)
--- NOTE | 2018-01-18 18:23 | PDOC ---
History of Present Illness - General Chief Complaint: Pain Stated Complaint: left foot pain Time Seen by Provider: 01/18/18 17:05 - History of Present Illness Initial Comments: 01/18/18 18:19 The patient is a 22 year old female with no PMH who presents to the emergency department with left foot pain. As per patient, her pain started gradually 2 days ago. Yesterday morning, she woke up with worsened pain. States the pain is on the bottom of her foot and worse with walking. She denies any recent injury. Denies wearing uncomfortable or ill fitting shoes. Denies any significant swelling to the foot. She denies recent fevers, chills, headache or dizziness. She denies recent nausea, vomit, diarrhea or constipation. She denies recent dysuria, frequency, urgency or hematuria. She denies recent chest pain or shortness of breath. Allergies: NKDA Past History - Past Medical History Allergies/Adverse Reactions: Allergies Allergy/AdvReac Type Severity Reaction Status Date / Time No Known Allergies Allergy Verified 01/18/18 18:29 Home Medications: Ambulatory Orders NK [No Known Home Medication] 01/18/18 Asthma: No Cancer: No Cardiac Disorders: No COPD: No Diabetes: No HTN: No Seizures: No Thyroid Disease: No - Immunization History Immunization Up to Date: Yes - Suicide/Smoking/Psychosocial Hx Smoking History: Never smoked Have you smoked in the past 12 months: No Hx Alcohol Use: No Drug/Substance Use Hx: No Substance Use Type: None Hx Substance Use Treatment: No Review of Systems - Review of Systems Comments:: 01/18/18 18:20 "GENERAL/CONSTITUTIONAL: No fever or chills. No weakness. HEAD, EYES, EARS, NOSE AND THROAT: No change in vision. No ear pain or discharge. No sore throat. CARDIOVASCULAR: No chest pain, no shortness of breath, no loss of consciousness RESPIRATORY: No cough, wheezing, or hemoptysis. GASTROINTESTINAL: No nausea, vomiting, diarrhea or constipation. GENITOURINARY: No dysuria, frequency, or change in urination. +MUSCULOSKELETAL: Left foot pain. No neck or back pain. SKIN: No rash NEUROLOGIC: No vertigo, no change in strength/sensation. ENDOCRINE: No increased thirst. No abnormal weight change. HEMATOLOGIC/LYMPHATIC: No anemia, easy bleeding, or history of blood clots. ALLERGIC/IMMUNOLOGIC: No hives or skin allergy. *Physical Exam - Physical Exam Comments: 01/18/18 18:20 GENERAL: Awake, alert, and fully oriented, in no acute distress. HEAD: No signs of trauma EYES: PERRLA, EOMI, sclera anicteric, conjunctiva clear ENT: Auricles normal inspection, hearing grossly normal, nares patent, oropharynx clear without exudates. Moist mucosa NECK: Nontender, no stepoffs, Normal ROM, supple, no lymphadenopathy, JVD, or masses LUNGS: Breath sounds equal, clear to auscultation bilaterally. No wheezes, and no crackles HEART: Regular rate and rhythm, normal S1 and S2, no murmurs, rubs or gallops ABDOMEN: Soft, nontender, normoactive bowel sounds. No guarding, no rebound. No masses EXTREMITIES: + L foot with tenderness over plantar surface, Normal range of motion, no edema. No clubbing or cyanosis. No cords, erythema, or tenderness NEUROLOGICAL: Cranial nerves II through XII intact. 5/5 strength and sensation in all extremities, Normal speech, normal gait, normal cerebellar function SKIN: Warm, Dry, normal turgor, no rashes or lesions noted. ED Treatment Course - RADIOLOGY Radiology Studies Ordered: Category Date Time Status FOOT-LEFT [RAD] Stat Radiology 01/18/18 17:17 Ordered Medical Decision Making - Medical Decision Making 01/18/18 18:20 22 F with atraumatic L foot pain. Exam notable for tenderness to plantar surface of foot. No bony tenderness, no deformity. Fracture unlikely. Suspect plantar fasciitis. No signs of infectious process. - X ray - Toradol 01/18/18 18:50 X ray negative Pt placed in hard-sole shoe. Pt is well appearing, with normal vitals. Clinically stable for DC at this time. I discussed the physical exam findings, ancillary test results and final diagnoses with the patient. I answered all of the patient's questions. The patient was satisfied with the care received and felt comfortable with the discharge plan and treatment plan. The patient agrees to follow up with the primary care physician within 24-72 hours. *DC/Admit/Observation/Transfer Diagnosis at time of Disposition: Plantar fasciitis - Discharge Dispostion Disposition: HOME Condition at time of disposition: Stable - Referrals Referrals: Jose Redding MD [Staff Physician] - - Patient Instructions Printed Discharge Instructions: DI for Plantar Fasciitis, DI for Foot Pain Additional Instructions: Call the number to make an appointment with an orthopedic surgeon for further evaluation of your foot pain. Avoid weight bearing when possible. Take motrin as needed for pain. If you experience worsening pain, swelling, redness, or any other concerning symptoms, return to the ER immediately. Llame al nmero para hacer maliha genna con un cirujano ortopdico para maliha evaluacin adicional de ruiz dolor de pie. Evite pararse o caminar cuando sea posible. Excelsior motrin segn sea necesario para el dolor. Si experimenta un empeoramiento del dolor, hinchazn, enrojecimiento o cualquier otro sntoma preocupante, regrese a la linwood de emergencias inmediatamente. Print Language: PARAGUAYAN - Post Discharge Activity - Attestations Physician Attestion: 01/18/18 18:51 I, Dr. Jose Scherer MD, attest that this document has been prepared under my direction and personally reviewed by me in its entirety. I further attest, that it accurately reflects all work, treatment, procedures and medical decision -making performed by me.
[2018-01-18] MEDS ORDERED: KETOROLAC TROMETHAMINE 30 MG/1 ML VIAL ONE (18:26)
[2018-01-18 18:32] VITALS: BP 118/71; PULSE 76; TEMP 98.2; BMI 38.2
== END 2018-01-18 19:06 | disposition home or self-care (01) ==
LOC: FER 17:04
PROC: 3E0233Z Introduction of Anti-inflammatory into Muscle, Percutaneous Approach (ICD-10-PCS; principal; 2018-01-18)
DX: M72.2 Plantar fascial fibromatosis (principal)
CPT/HCPCS: 73630-TC-LT; 84703; 96372; 99282-25

== ENCOUNTER 2023-03-03 11:31 | Emergency (ER) | payer OTHER ==
[2023-03-03 11:53] VITALS: BP 113/62; PULSE 81; RESP 18; TEMP 98.2; BMI 41.1
[2023-03-03] MEDS ORDERED: SODIUM CHLORIDE 1,000 ML IV STA (13:18)
[2023-03-03] MEDS ORDERED: METOCLOPRAMIDE HCL INJECTION 10 MG/2 ML VIAL IVPUSH ONE (13:18)
[2023-03-03] MEDS ORDERED: ACETAMINOPHEN 1000 MG/100 ML BAG IVPB ONE (13:25)
[2023-03-03] MEDS ORDERED: METOCLOPRAMIDE HCL INJECTION 10 MG/2 ML VIAL ONE (14:30)
[2023-03-03] MEDS ORDERED: ACETAMINOPHEN INJECTION 100 ML IVPB ONE (14:31)
[2023-03-03 15:06] LABS: BASO % 0.1 % (0-2.0); EOS % 0.4 % (0-4.5); HCG,QUALITATIVE URINE Positive; HEMOGLOBIN 12.9 GM/dL (10.7-15.3); LYMPH % 17.5 % (8-40); MCH 29.5 pg (25.7-33.7); MEAN CELL VOLUME 89.4 fl (80-96); MEAN PLT VOLUME 8.1 fl (7.5-11.1); MONO % 13.8 % (3.8-10.2); NEUT % 68.2 % (42.8-82.8); PLATELET COUNT 230 10^3/uL (134-434); RBC 4.36 M/mm3 (3.60-5.2); RDW 14.4 % (11.6-15.6); URINE APPEARANCE CLEAR; URINE BILIRUBIN NEGATIVE (NEGATIVE); URINE COLOR YELLOW; URINE GLUCOSE (UA) NEGATIVE (NEGATIVE); URINE KETONE TRACE (NEGATIVE); URINE LEUK ESTERASE NEGATIVE (NEGATIVE); URINE NITRITE NEGATIVE (NEGATIVE); URINE PROTEIN TRACE (NEGATIVE); WHITE BLOOD COUNT 6.1 K/mm3 (4.0-10.0)
[2023-03-03 15:12] LABS: INR 1.1 (0.83-1.09); PROTHROMBIN TIME (PATIENT) 12.7 SEC (9.7-13.0)
[2023-03-03 15:15] LABS: ACTIVATED PTT 27.8 SECONDS (25.2-36.5)
[2023-03-03 15:22] LABS: POTASSIUM 4.2 mmol/L (3.5-5.1)
[2023-03-03 15:24] LABS: ALBUMIN 3.1 g/dl (3.4-5.0); CALCIUM 9.3 mg/dL (8.5-10.1)
[2023-03-03 15:28] LABS: CREATININE 0.5 mg/dL (0.55-1.3)
[2023-03-03 15:29] LABS: BILIRUBIN,TOTAL 0.3 mg/dL (0.2-1); TOT PROT 7.1 g/dl (6.4-8.2)
[2023-03-03] MEDS ORDERED: PROMETHAZINE HCL 25 MG/1 ML VIAL IM ONE (15:46)
[2023-03-03] MEDS ORDERED: PROMETHAZINE HCL 25 MG/1 ML VIAL ONE (16:41)
== END 2023-03-03 20:42 | disposition home or self-care (01) ==
LOC: JER 11:31
PROC: 3E033NZ Introduction of Analgesics, Hypnotics, Sedatives into Peripheral Vein, Percutaneous Approach (ICD-10-PCS; principal; 2023-03-03)
PROC: 3E033GC Introduction of Other Therapeutic Substance into Peripheral Vein, Percutaneous Approach (ICD-10-PCS; 2023-03-03)
PROC: 3E023GC Introduction of Other Therapeutic Substance into Muscle, Percutaneous Approach (ICD-10-PCS; 2023-03-03)
PROC: 3E0337Z Introduction of Electrolytic and Water Balance Substance into Peripheral Vein, Percutaneous Approach (ICD-10-PCS; 2023-03-03)
DX: O26.891 Other specified pregnancy related conditions, first trimester (principal); R10.9 Unspecified abdominal pain; O21.9 Vomiting of pregnancy, unspecified; Z3A.09 9 weeks gestation of pregnancy
CPT/HCPCS: 36415; 76817-TC; 80053; 81003; 84702; 84703; 85025; 85610; 85730; 86850; 86900; 86901; 87086; 99284-25

== ENCOUNTER 2023-03-13 22:03 | Emergency (ER) | payer OTHER ==
[2023-03-13 22:25] VITALS: BMI 39.4
[2023-03-13] MEDS ORDERED: MAG HYDROX/AL HYDROX/SIMETH 30 ML UNIT-DOSE CUP PO ONE (23:10)
[2023-03-13] MEDS ORDERED: MAG HYDROX/AL HYDROX/SIMETH 30 ML UNIT-DOSE CUP ONE (23:20)
[2023-03-13] MEDS ORDERED: LACTATED RINGERS SOLUTION 1000 ML INFUS.BAG IV ONE (23:37)
[2023-03-13] MEDS ORDERED: ONDANSETRON 4 MG/2 ML VIAL IVPUSH ONE (23:37)
[2023-03-13 23:40] LABS: BASO % 0.5 % (0-2.0); EOS % 0.2 % (0-4.5); HEMOGLOBIN 13.8 GM/dL (10.7-15.3); MCH 30.5 pg (25.7-33.7); MCHC 34.4 g/dl (32.0-36.0); MEAN CELL VOLUME 88.5 fl (80-96); MEAN PLT VOLUME 7.8 fl (7.5-11.1); MONO % 6.1 % (3.8-10.2); NEUT % 77.2 % (42.8-82.8); PLATELET COUNT 252 10^3/uL (134-434); RBC 4.52 M/mm3 (3.60-5.2); RDW 14.3 % (11.6-15.6); WHITE BLOOD COUNT 10.4 K/mm3 (4.0-10.0)
[2023-03-13] MEDS ORDERED: ACETAMINOPHEN 1000 MG/100 ML BAG IVPB ONE (23:42)
[2023-03-13] MEDS ORDERED: ONDANSETRON 4 MG/2 ML VIAL ONE (23:49)
[2023-03-14] MEDS ORDERED: ACETAMINOPHEN INJECTION 100 ML IVPB ONE (00:15)
[2023-03-14 00:34] LABS: POTASSIUM 4.1 mmol/L (3.5-5.1)
[2023-03-14 00:36] LABS: ALBUMIN 3.2 g/dl (3.4-5.0); BLOOD UREA NITROGEN 8.1 mg/dL (7-18); CALCIUM 9.5 mg/dL (8.5-10.1)
[2023-03-14 00:39] LABS: CREATININE 0.6 mg/dL (0.55-1.3)
[2023-03-14 00:41] LABS: BILIRUBIN,TOTAL 0.4 mg/dL (0.2-1); TOT PROT 7.8 g/dl (6.4-8.2)
[2023-03-14 02:03] VITALS: BP 124/76; PULSE 78; RESP 18; TEMP 98.9
== END 2023-03-14 02:03 | disposition home or self-care (01) ==
LOC: JER 22:03
PROC: 3E033NZ Introduction of Analgesics, Hypnotics, Sedatives into Peripheral Vein, Percutaneous Approach (ICD-10-PCS; principal; 2023-03-13)
PROC: 3E033GC Introduction of Other Therapeutic Substance into Peripheral Vein, Percutaneous Approach (ICD-10-PCS; 2023-03-13)
DX: O21.8 Other vomiting complicating pregnancy (principal); K92.0 Hematemesis; O26.891 Other specified pregnancy related conditions, first trimester; R10.13 Epigastric pain; R10.31 Right lower quadrant pain; Z3A.10 10 weeks gestation of pregnancy
CPT/HCPCS: 36415; 80053; 85025; 99284-25; J0131

== ENCOUNTER 2023-09-22 16:29 | Inpatient (IN) | payer OTHER ==
[2023-09-22 18:14] VITALS: BMI 47.5
[2023-09-22 18:38] LABS: BASO % 0.1 % (0-2.0); EOS % 0.2 % (0-4.5); HEMATOCRIT 31.9 % (32.4-45.2); HEMOGLOBIN 10.5 GM/dL (10.7-15.3); LYMPH % 7.5 % (8-40); MEAN CELL VOLUME 87.8 fl (80-96); MEAN PLT VOLUME 9.3 fl (7.5-11.1); MONO % 11.1 % (3.8-10.2); NEUT % 81.1 % (42.8-82.8); PLATELET COUNT 177 10^3/uL (134-434); RBC 3.63 M/mm3 (3.60-5.2); RDW 16.1 % (11.6-15.6); WHITE BLOOD COUNT 6.6 K/mm3 (4.0-10.0)
[2023-09-22 18:42] LABS: EPI CELLS 32 /uL (0-25.1); HYALINE CASTS 8 /uL (0-3.1); URINE APPEARANCE CLOUDY; URINE BACTERIA 6361 /uL (0-1359); URINE BILIRUBIN NEGATIVE (NEGATIVE); URINE COLOR YELLOW; URINE GLUCOSE (UA) NEGATIVE (NEGATIVE); URINE KETONE TRACE (NEGATIVE); URINE LEUK ESTERASE NEGATIVE (NEGATIVE); URINE NITRITE NEGATIVE (NEGATIVE); URINE PROTEIN 3+ (NEGATIVE); URINE RBC 12 /uL (0-23.9)
[2023-09-22 18:46] LABS: INR 0.91 (0.83-1.09); PROTHROMBIN TIME (PATIENT) 10.3 SEC (9.7-13.0)
[2023-09-22 18:49] LABS: ACTIVATED PTT 28.3 SECONDS (25.2-36.5)
[2023-09-22 19:02] LABS: POTASSIUM 4.1 mmol/L (3.5-5.1)
[2023-09-22 19:04] LABS: CALCIUM 8.3 mg/dL (8.5-10.1)
[2023-09-22 19:05] LABS: ALBUMIN 2.1 g/dl (3.4-5.0); BLOOD UREA NITROGEN 10.8 mg/dL (7-18)
[2023-09-22 19:08] LABS: CREATININE 0.7 mg/dL (0.55-1.3); URINE WBC 238.6 /uL (0-25.8)
[2023-09-22 19:09] LABS: BILIRUBIN,TOTAL 0.1 mg/dL (0.2-1)
[2023-09-22] MEDS ORDERED: DEXAMETHASONE SOD PHOSPHATE 4 MG/1 ML VIAL ONE (19:09)
[2023-09-22] MEDS ORDERED: KETOROLAC TROMETHAMINE 30 MG/1 ML VIAL ONE (19:09)
[2023-09-22] MEDS ORDERED: OXYTOCIN 10 UNITS/ML VIAL ONE ×2 (19:09→21:17)
[2023-09-22 19:10] LABS: TOT PROT 5.4 g/dl (6.4-8.2)
[2023-09-22] MEDS ORDERED: FENTANYL CITRATE/PF 50 MCG/ML VIAL ONE ×4 (19:10→21:17)
[2023-09-22] MEDS ORDERED: morphine SULFATE/PF 1 MG/2 ML (2cc Syringe - QUVA) ONE ×2 (19:11→20:38)
[2023-09-22 20:02] LABS: HIV INTERPRETATION NEGATIVE (NEGATIVE)
[2023-09-22] MEDS ORDERED: LIDOCAINE HCL/PF 2% SDV 5ML VIAL ONE ×2 (20:28→20:49)
[2023-09-22] MEDS ORDERED: EPINEPHrine/PF 1 MG/1 ML (1:1,000) AMPULE ONE (20:28)
[2023-09-22] MEDS ORDERED: ceFAZolin SODIUM 1 GM VIAL ONE (20:39)
[2023-09-22] MEDS ORDERED: PROPOFOL 20 ML ONE (20:50)
[2023-09-22] MEDS ORDERED: SUCCINYLCHOLINE CHLORIDE 200 MG/10 ML SYRINGE ONE (20:52)
[2023-09-22] MEDS ORDERED: ROCURONIUM BROMIDE 50 MG/5 ML SYRINGE ONE ×2 (20:52→21:03)
[2023-09-22] MEDS ORDERED: MIDAZOLAM HCL 2 MG/2 ML SINGLE DOSE VIAL ONE (21:00)
[2023-09-22] MEDS ORDERED: SUGAMMADEX SODIUM 200 MG/2 ML VIAL ONE (21:04)
[2023-09-22 21:23] LABS: CORD BASE EXCESS -5.6 mmol/L (0-2); CORD HCO3 22.8 mmHg (20-29); CORD PCO2 55.7 mmHg (30-78); CORD pH 7.23 (7.14-7.44)
[2023-09-22 21:24] LABS: CORD BASE EXCESS -5.8 mmol/L (0-2); CORD HCO3 20.5 mmHg (20-29); CORD PCO2 42.9 mmHg (30-78); CORD pH 7.297 (7.14-7.44)
[2023-09-22] MEDS: ELECTROLYTE-148 SOLN 1,000 ML IV SCH (22:00)
[2023-09-22] MEDS ORDERED: OXYTOCIN 20 UNITS in 0.9% NS 20 UNIT/1,000 ML INFUS.BAG IV ONE (23:08)
[2023-09-22] MEDS ORDERED: HYDROmorphone *PCA* 10MG/50ML DISP.SYRIN ONE (23:11)
[2023-09-23] MEDS ORDERED: IBUPROFEN 800 MG/8 ML IJ IVPB ONE (00:13)
[2023-09-23 00:46] VITALS: RESP 18
[2023-09-23] MEDS: HYDROmorphone *PCA* 10MG/50ML DISP.SYRIN PCA SCH (01:25)
[2023-09-23] MEDS: OXYTOCIN 20 UNITS in 0.9% NS 20 UNIT/1,000 ML INFUS.BAG IV SCH (03:10)
[2023-09-23] MEDS: SIMETHICONE 80 MG TAB.CHEW (FP) PO PRN (06:26)
[2023-09-23] MEDS: CEFAZOLIN SODIUM 2 GM in DEXTROSE 5%-WATER 100 ML IVPB ONE (06:26)
[2023-09-23 06:41] LABS: HEMATOCRIT 25.2 % (32.4-45.2); HEMOGLOBIN 8.4 GM/dL (10.7-15.3); LYMPH % 5.9 % (8-40); MCH 29.6 pg (25.7-33.7); MCHC 33.3 g/dl (32.0-36.0); MEAN CELL VOLUME 88.9 fl (80-96); MEAN PLT VOLUME 9.2 fl (7.5-11.1); MONO % 6.4 % (3.8-10.2); NEUT % 87.7 % (42.8-82.8); PLATELET COUNT 158 10^3/uL (134-434); RBC 2.83 M/mm3 (3.60-5.2); RDW 15.8 % (11.6-15.6); WHITE BLOOD COUNT 13.1 K/mm3 (4.0-10.0)
[2023-09-23] MEDS: IBUPROFEN 800 MG/8 ML IJ IVPB PRN (12:39)
[2023-09-23] MEDS: ONDANSETRON 4 MG/2 ML VIAL IVPB PRN (15:02)
[2023-09-23] MEDS: ONDANSETRON *ODT* 4 MG TABLET SL PRN (17:19)
[2023-09-23] MEDS: IBUPROFEN 600 MG TABLET (FP) PO PRN (20:56)
[2023-09-23] MEDS: ACETAMINOPHEN 325 MG TABLET (FP) PO PRN (22:34)
[2023-09-23] MEDS: guaiFENesin 200 MG/10 ML 10 ML UNIT-DOSE CUPS PO PRN (22:58)
[2023-09-23] MEDS: oxyCODONE HCL 5 MG TABLET PO PRN (23:18)
[2023-09-24] MEDS: BISACODYL 10 MG SUPP.RECT RC PRN (09:39)
[2023-09-24] MEDS: FERROUS SO4 325 MG TABLET (FP) PO SCH (16:36)
[2023-09-25 06:55] LABS: BASO % 0.2 % (0-2.0); EOS % 0.7 % (0-4.5); HEMATOCRIT 22.6 % (32.4-45.2); HEMOGLOBIN 7.4 GM/dL (10.7-15.3); LYMPH % 18.1 % (8-40); MCH 29.5 pg (25.7-33.7); MCHC 32.8 g/dl (32.0-36.0); MEAN CELL VOLUME 89.9 fl (80-96); MEAN PLT VOLUME 8.6 fl (7.5-11.1); MONO % 8.1 % (3.8-10.2); NEUT % 72.9 % (42.8-82.8); PLATELET COUNT 164 10^3/uL (134-434); RBC 2.51 M/mm3 (3.60-5.2); RDW 16.4 % (11.6-15.6); WHITE BLOOD COUNT 11.2 K/mm3 (4.0-10.0)
[2023-09-25 09:37] VITALS: BP 118/69; PULSE 73; TEMP 98
[2023-09-25] MEDS ORDERED: guaiFENesin 200 MG/10 ML 10 ML UNIT-DOSE CUPS PO PRN (12:20)
== END 2023-09-25 15:05 | disposition home or self-care (01) | DRG 540 ==
LOC: JDEL 16:29 → JLDR 17:25 → J3W 09-23 00:01
PROVIDERS: ADMIT Student in an Organized Health Care Education/Training Program; ATTEND Student in an Organized Health Care Education/Training Program
PROC: 10D00Z1 Extraction of Products of Conception, Low, Open Approach (ICD-10-PCS; principal; 2023-09-22)
DX: O34.219 Maternal care for unspecified type scar from previous cesarean delivery (principal); O16.4 Unspecified maternal hypertension, complicating childbirth; O98.52 Other viral diseases complicating childbirth; U07.1 COVID-19; O99.02 Anemia complicating childbirth; Z3A.38 38 weeks gestation of pregnancy; Z37.0 Single live birth
CPT/HCPCS: 0241U-QW; 36415; 36600; 59025; 59409; 80048; 80053; 81003; 82570; 82803; 84156; 85025; 85610; 85730; 86780; 86850; 86900; 86901; 87389; 88307-TC; Q0162

== ENCOUNTER 2023-10-02 13:48 | Emergency (ER) | payer OTHER ==
[2023-10-02 13:54] VITALS: BP 117/78; PULSE 88; RESP 20; TEMP 99.1; BMI 42.4
[2023-10-02] MEDS ORDERED: ACETAMINOPHEN 500 MG TABLET (FP) ONE (15:22)
[2023-10-02] MEDS: ACETAMINOPHEN 500 MG TABLET (FP) PO ONE (15:38)
[2023-10-02] MEDS ORDERED: CEPHALEXIN MONOHYDRATE 500 MG CAPSULE (UD) ONE (16:48)
[2023-10-02] MEDS: CEPHALEXIN MONOHYDRATE 500 MG CAPSULE (UD) PO ONE (16:53)
== END 2023-10-02 17:45 | disposition home or self-care (01) ==
LOC: JER 13:48
DX: O90.0 Disruption of cesarean delivery wound (principal); O99.73 Diseases of the skin and subcutaneous tissue complicating the puerperium; L02.211 Cutaneous abscess of abdominal wall
CPT/HCPCS: 99283-25

== ENCOUNTER 2024-06-01 11:32 | Emergency (ER) | payer OTHER ==
[2024-06-01 12:45] VITALS: BP 125/78; PULSE 72; RESP 16; TEMP 98; BMI 36.3
[2024-06-01] MEDS ORDERED: IBUPROFEN 600 MG TABLET (FP) PO ONE ×2 (13:40→13:43)
== END 2024-06-01 13:50 | disposition home or self-care (01) ==
LOC: JERFT 11:32
DX: S46.012A Strain of muscle(s) and tendon(s) of the rotator cuff of left shoulder, initial encounter (principal); X58.XXXA Exposure to other specified factors, initial encounter
CPT/HCPCS: 73030-TC-LT-FY; 99283-25